=== PATIENT | female | born 1965 ===

== ENCOUNTER → 2017-01-14 | Outpatient (CLI) | payer BC ==
[2017-01-14 17:32] LABS: CHOLESTEROL/HDL RATIO 2.7
== END | disposition home or self-care (01) ==
LOC: C.LABPBG 15:25
PROVIDERS: ATTEND Family Medicine
DX: Z13.220 Encounter for screening for lipoid disorders (principal)

== ENCOUNTER → 2017-04-26 | Outpatient (CLI) | payer BC | END | disposition home or self-care (01) | LOC: C.LABPBG 14:26 | PROVIDERS: ATTEND Physician Assistant | DX: J02.9 Acute pharyngitis, unspecified (principal) ==

== ENCOUNTER → 2018-06-28 | Outpatient (CLI) | payer BC ==
--- NOTE | 2018-06-28 18:17 | DIAGNOSTIC IMAGING REPORT ---
L-SPINE MIN 4 VIEWS ROUTINE HISTORY: Pain M54.5 Low back [id number] COMPARISON: None. FINDINGS: There is no fracture. No subluxation. Moderate degenerative disc change L4-S1. The body stature is normal. No evidence for subluxation. Mild degenerative change posterior elements. IMPRESSION: Mild/moderate degenerative change of the L4-S1 level of the lumbar spine. No acute process. The above report was generated using voice recognition software. It may contain grammatical, syntax or spelling errors. Electronically signed by: Emory Price M.D. 06/28/2018 6:16 PM Dictated Date/Time: 06/28/2018 6:15 PM
== END | disposition home or self-care (01) ==
LOC: C.RAD 17:31
PROVIDERS: ATTEND Nurse Practitioner Family
DX: M54.5 Low back pain (principal)